=== PATIENT | male | born 2005 | race Caucasian/White ===

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

== ENCOUNTER → 2025-04-29 00:37 | Outpatient (BNV) | payer MEDICAID, SELFPAY | PROVIDERS: Emergency Provider Emergency Medicine; PCP Nurse Practitioner Primary Care; Visit Provider General Practice | DX: M25.512 Pain in left shoulder (principal) | CPT/HCPCS: 73030 ==

== ENCOUNTER 2025-04-29 01:18 | Emergency (ER) | payer MEDICAID, SELFPAY ==
--- NOTE | ~2025-04-29 | XR_ITS ---
CLINICAL HISTORY: fall pain 4 view left shoulder Comparison: None provided Findings: Bones intact. No dislocations. No significant arthritic change. No erosions. No radiopaque foreign body. IMPRESSION: 1. No acute findings This document has been electronically signed by: Kailash Escamilla MD, PHD on 04/29/2025 02:15:55
[2025-04-29 01:20] VITALS: BP 131/83; PULSE 113; RESP 18; TEMP 36.9; O2SAT 97; BMI 28.3
[2025-04-29 01:47] VITALS: BP 131/83; PULSE 113; RESP 18; TEMP 36.9; O2SAT 97
--- NOTE | 2025-04-29 03:06 | ED_ITS ---
HPI - Extremity Problem General Chief complaint: Extremity Injury, Upper Stated complaint: left shoulder pain after fall Time Seen by Provider: 04/29/25 02:54 Source: patient Mode of arrival: ambulatory Limitations: no limitations History of Present Illness ED Provider: Dr. Marisela Pepper HPI Narrative: Patient comes to the emergency room complaining of left shoulder pain. Patient states that yesterday patient was at home, patient's dog ran out, patient tried holding on to his collar. Patient got pulled to the ground and landed on his left shoulder. Patient did not hit his head and did not lose consciousness, patient not on blood thinners. Related Data Previous Rx's ?Medication ?Instructions ?Recorded amoxicillin 500 mg capsule 500 mg PO BID 10 days #20 c aps 01/17/23 ibuprofen 600 mg tablet 600 mg PO Q8H PRN pain #20 t abs 01/17/23 cyclobenzaprine 5 mg tablet 5 mg PO TID PRN muscle spa sm #10 04/29/25 tabs ibuprofen 600 mg tablet 600 mg PO Q8H PRN fever or p ain 04/29/25 #20 tabs Allergies Allergy/AdvReac Type Severity Reaction Status Date / Time No Known Allergies Allergy Verified 04/29/25 01:26 Review of Systems Review of Systems: Constitutional : No Weight loss, No Fever, No Chills, No Night Sweats, No Fatigue, No Malaise ENT/Mouth : No Hearing loss, No Ear Pain, No Nasal Congestion, No Sinus Pain, No Hoarseness, No sore throat, No Rhinorrhea, No Swallowing Difficulty Eyes: No Eye Pain, No Swelling, No Redness, No Foreign Body, No Discharge, No Vision Changes Cardiovascular : No Chest Pain, No SOB, No Dyspnea on Exertion, No Orthopnea, No Edema, No Palpitations Respiratory : No Cough, No Sputum, No Wheezing, No Smoke Exposure, No Dyspnea Gastrointestinal : No Nausea, No Vomiting, No Diarrhea, No Constipation, No abdominal Pain, No Hematochezia, No Melena Genitourinary : no irregular bleeding, No Dysuria, No Urinary Frequency, No Hematuria, No Urinary Incontinence, No Urgency, No Flank Pain, No Urinary Flow Changes, No Hesitancy Musculoskeletal : Complaining of left shoulder pain No Myalgias, No Joint Swelling Skin : No Skin Lesions, No rash Neuro : No Weakness, No Numbness, No Paresthesias, No Loss of Consciousness, No Dizziness, No Headache Psych : No Anxiety/Panic, No Depression, No SI/HI/AH/VH, No Social Issues, Heme/Lymph: No Bruising, No Bleeding,No Lymphadenopathy Endocrine : No Polyuria, No Polydipsia, No Temperature Intolerance [facility] Social History Social History Smoked in Last 30 Days: No Substance Use Type: Marijuana Advance Directives: No Advance Directives Information Provided: Yes Physical Exam Exam: Exam: Appearance: Alert. Oriented X3. No acute distress. Eyes: Pupils equal, round and reactive to light. ENT: Pharynx normal. Neck: Normal inspection. Neck supple. No lymph nodes noted. No crepitus CVS: Normal heart rate and rhythm. Pulses normal. Normal S1 and S2 Respiratory: No respiratory distress. Breath sounds normal. No Wheezing. No rales Abdomen: Soft and nontender. No rigidity. No distention. Skin: Skin warm and dry. Normal skin color. Normal skin turgor. Extremities: No lower extremity edema. No Lacerations. No Rash the palpation over the clavicle, no suprascapular pain. Patient is able to abduct his arm to 180 degrees. Neuro: Oriented X 3. No motor deficit. No sensory deficit. Moving all extremities. No slurred speech. CN 2 through 12 grossly intact Psych: calm, cooperative, normal affect Vital Signs: Vital Signs: Last Vital Signs Temp 98.4 F 04/29/25 01:47 Pulse 113 H 04/29/25 01:47 Resp 18 04/29/25 01:47 BP 131/83 04/29/25 01:47 Pulse Ox 97 04/29/25 01:47 O2 Del Method Room Air 04/29/25 01:47 BMI result Body Mass Index 28.3 Medical Decision Making Medical Decision Making MDM Narrative: I discussed the x-ray findings with the patient, no acute fracture. Patient has normal range of motion. Patient likely has a small rotator cuff tear, full rupture is not suspected. Patient may also have a contusion. Patient was given cyclobenzaprine and ibuprofen in the emergency room. Independent Interpretation I performed an independent interpretation of an: Plain X-Ray Radiology Impression Discussion of test interpretation with radiology: I have reviewed the radiologist's reading. Radiologist Impression: Bones intact. No dislocations. No significant arthritic change. No erosions. No radiopaque foreign body. IMPRESSION: 1. No acute findings Discharge Plan Discharge Clinical Impression: Contusion of left shoulder Patient Disposition: Home, Self-Care Instructions: Contusion in Adults (ED) Additional Instructions: Please follow-up with your primary care physician tomorrow. If you have any worsening or new symptoms, please return to the emergency room or call 911 Prescriptions: New cyclobenzaprine 5 mg tablet 5 mg PO TID PRN (Reason: muscle spasm) Qty: 10 0RF Rx Instructions: Do not use this medication before driving or working. ibuprofen 600 mg tablet 600 mg PO Q8H PRN (Reason: fever or pain) Qty: 20 0RF No Action amoxicillin 500 mg capsule 500 mg PO BID 10 Days Qty: 20 0RF ibuprofen 600 mg tablet 600 mg PO Q8H PRN (Reason: pain) Qty: 20 0RF Print Language: Tajik
[2025-04-29 03:32] VITALS: BP 131/83; PULSE 113; RESP 18; TEMP 36.9; O2SAT 97
== END 2025-04-29 03:39 | disposition home or self-care (01) ==
PROVIDERS: Emergency Provider Emergency Medicine; PCP Nurse Practitioner Primary Care
DX: S40.012A Contusion of left shoulder, initial encounter (principal); M25.512 Pain in left shoulder; X58.XXXA Exposure to other specified factors, initial encounter; Y93.9 Activity, unspecified; Y92.9 Unspecified place or not applicable; Y99.8 Other external cause status
CPT/HCPCS: 73030; 99283; 99284

== ENCOUNTER 2025-06-19 15:01 | Outpatient (REF) | payer MEDICAID, SELFPAY ==
--- OUTSIDE RECORDS SUMMARY | 2025-06-19 09:30 | XMS_ITS | Encounter Summary ---
Author Organization [employer] Address [address] [facility] 7t [place] [address] Care Team Providers Care Loan Originator Name Role Phone Nellie Feliz Primary Care Provider [phone] Reason for Referral * Consultation (Routine) - Authorized Specialty Diagnoses / Procedures Referred By Kay antoine Referred To Contact Behavioral Health Diagnoses Anxiety Nellie Feliz ANP [address] [place] [phone] Phone: tel: fax: Referral ID Status Reason Start Date Expiration Date Visits Requested Visits Authorized [id number] Authorized Specialty Services Required 06/19/2025 06/19/2026 1 1 Reason for Visit * Reason Comments Follow-up Encounter Details Date Type Department Care Team ([facility] st Contact Info) Description 06/19/2025 9:30 AM EDT Office Visit [facility] MEDICINE [address] [place] [address] [phone] Nellie Feliz ANP [address] [place] [phone] Routine screening for STI (sexually transmitted infection) (Primary Dx); Anxiety Social History Tobacco Use Types Packs/Day Years Used Date Smoking Tobacco: Never Smokeless Tobacco: Never Tobacco Cessation:Counseling Given: Not Answered Alcohol Answer Date Recorded How often do you have a drink containing alcohol ? 1 06/19/2025 How many drinks containing a lcohol do you have on a typical day when you are drinking? 1 06/19/2025 How often do you have six or more drinks on one occasion? 0 06/19/2025 Depression Answer Date Recorded Patient Health Questionnaire-9 Score 12 06/19/2025 Patient Health Questionnaire-9 Score 12 06/19/2025 Last PHQ-9: Questionnaire Data Not on file 0 06/19/2025 Housing Stability Answer Date Recorded What is your housing situation today? I have housing today, but I am worried about losing housing in the future 06/19/[address] you li ve. Do you have problems with any of the following? None of the above 06/19/2025 Food Insecurity Answer Date Recorded Within the past 12 months, y ou worried that your food would run out before you got money to buy more: Sometimes True 2024 Within the past 12 months,th e food you bought just didn't last and you didn't have enough money to get more: Never True 06/19/2025 Transportation Answer Date Recorded In the past 12 months, has l ack of transportation kept you from medical appts, meetings, work or from getting things needed for daily living? No 06/19/2025 Utilities Answer Date Recorded In the past 12 months, has t he electric, gas, oil or water company threatened to shut off services in your home? Yes 06/19/2025 Depression Answer Date Recorded Patient Health Questionnaire-2 Score 2 06/19/2025 Internet Access Answer Date Recorded Internet Access Q1 Yes 06/19/2025 Internet Access Q2 Not on file 06/19/2025 Sex and Gender Information Value Date Recorded Sex Assigned at Male 08/07/2022 10:19 AM EDT Legal Sex Male 10:19 AM EDT Gender Identity Male 08/07/2022 10:19 AM EDT Sexual Orientation Straight 06/18/2025 10 :40 AM EDT documented as of this encounter Last Filed Vital Signs Vital Sign Reading Time Taken Comments Blood Pressure 110/68 06/19/2025 9:55 AM EDT Pulse 68 06/19/2025 9:55 AM EDT Temperature 36.6 C (97.8 F) 06/19/2025 9:55 AM EDT Respiratory Rate 20 06/19/2025 9:55 AM EDT Oxygen Saturation - - Inhaled Oxygen Concentration - - Weight 90.4 kg (199 lb 4 oz) 06/19/2025 9:55 AM EDT Height 177.8 cm (5' 10 ) 06/19/2025 9:55 AM EDT Body Mass Index 28.59 06/19/2025 9:55 AM EDT documented in this encounter Functional Status * Over the past 2 weeks, how often have you been bothered by any of the following problems? Question Answer Date of Assessment Author Patient Health Questionnaire -2 Score 2 06/19/2025 9:57 AM EDT Nguyen Hernandez MA * Little interest or pleasure in doing things Answer Date of Assessment Author Several days 06/19/2025 9:57 AM EDT Renetta Hernandez MA * Feeling down, depressed, or hopeless Answer Date of Assessment Author Several days 06/19/2025 9:57 AM EDT Renetta Hernandez MA * Trouble falling or staying asleep, or sleeping too much Answer Date of Assessment Author More than half the days 06/19/2025 9:57 AM EDT Nguyen Riggs MA * Feeling tired or having little energy Answer Date of Assessment Author More than half the days 06/19/2025 9:57 AM EDT Nguyen Riggs MA * Poor appetite or overeating Answer Date of Assessment Author More than half the days 06/19/2025 9:57 AM POLOT Nguyen Riggs MA * Feeling bad about yourself - or that you are a failure or have let yourself or your family down Answer Date of Assessment Author Several days 06/19/2025 9:57 AM EDT Renetta Hernandez MA * Trouble concentrating on things, such as reading the newspaper or watching television Answer Date of Assessment Author Several days 06/19/2025 9:57 AM EDT Renetta eHrnandez MA * Moving or speaking so slowly that other people could have noticed? Or the opposite - being so fidgety or restless that you have been moving around a lot more than usual. Answer Date of Assessment Author More than half the days 06/19/2025 9:57 AM EDT Nguyen Riggs MA * Thoughts that you would be better off or hurting yourself in some way Answer Date of Assessment Author Not at all 06/19/2025 9:57 AM Renetta Roca MA * Patient Health Questionnaire-9 Score Answer Date of Assessment Author 12 06/19/2025 9:57 AM Renetta Roca MA * How difficult have these problems made it for you to do your work, take care of things at home, or get along with other people? Answer Date of Assessment Author Very difficult 06/19/2025 9:57 AM Renetta Roca MA * Over the last 2 weeks, how often have you been bothered by any of the following problems? Question Answer Date of Assessment Author Feeling nervous, anxious, or on edge 2 06/19/2025 10:37 AM Nguyen Roca MA Not being able to stop or co ntrol worrying 2 06/19/2025 10:37 AM Nguyen Roca MA Worrying too much about diff erent things 2 06/19/2025 10:37 AM Nguyen Roca MA Trouble relaxing 2 06/19/2025 10:37 AM Nguyen Roca MA Being so restless that it is hard to sit still 3 06/19/2025 10:37 AM Nguyen Roca MA Becoming easily annoyed or irritable 2 06/19/2025 10:37 AM Nguyen Roca MA Feeling afraid as if somethi ng awful might happen 2 06/19/2025 10:37 AM Nguyen Roca MA AJIT-7 Total Score 15 06/19/2025 10:37 AM Nguyen Roca MA documented as of this encounter Progress Notes * SIMON Cade - 06/19/2025 9:30 AM EDT Subjective Patient ID: Ridge Shelby is a 20 y.o. male who presents for Follow-up. HPI Depression has been better since taking sertraline consistently, anxiety has not really improved though. Is walking more. He has been having difficulty getting out to work and class d/t anxiety. Is thinking abt applying to disability. Was in therapy but stopped b/c he was actually feeling so down it was hard to even participate. 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 HENT: Negative for sore throat. Respiratory: Negative for cough. Endocrine: Negative for polydipsia, polyphagia and polyuria. Psychiatric/Behavioral: Positive for dysphoric mood. Negative for agitation and confusion. The patient is nervous/anxious. Objective BP 110/68 (BP Location: Left arm, Patient Position: Sitting, BP Cuff Size: Adult) Pulse68 Temp 97.8 ??F (36.6 ??C) (Oral) Resp 20 Ht 5' 10 (1.778 m) Wt 199 lb 4 oz (90.4 kg) BMI 28.59 kg/m?? Physical Exam Vitals reviewed. Constitutional: General: He is not in acute distress. Appearance: Normal appearance. He is not ill-appearing. HENT: Head: Normocephalic and atraumatic. Eyes: General: No scleral icterus. Extraocular Movements: Extraocular movements intact. Pupils: Pupils are equal, round, and reactive to light. Cardiovascular: Rate and Rhythm: Normal rate and regular rhythm. Pulmonary: Effort: Pulmonary effort is normal. No accessory muscle usage or respiratory distress. Neurological: Mental Status: He is alert and oriented to person, place, and time. Psychiatric: Mood and Affect: Mood normal. Behavior: Behavior normal. Assessment/Plan Diagnoses and all orders for this visit: Routine screening for STI (sexually transmitted infection) - Chlamydia/N. Gonorrhoeae, PCR, Urine - Hepatitis C Antibody with Reflex to HCV, RNA, Quantitative, Real-Time PCR; Future - HIV-1/2 Antigen and Antibodies, Fourth Generation, with Reflexes; Future - Syphilis Screen; Future Anxiety Comments: will increase sertraline to 100mg daily, call for follow-up short term Accepts referral to Orders: - Referral to Behavioral Health; Future - sertraline (Zoloft) 100 MG tablet; Take 1 tablet (100 mg) by mouth Once per day. Take 1 tab (50mg) once daily documented in this encounter Plan of Treatment Upcoming Encounters Date Type Department Care Team ([facility] st Contact Info) Description 07/28/2025 11:00 AM EDT Telemedicine [facility] MEDICINE [address] [place] [address] Nellie Feliz ANP [address] [place], [place] [phone] Scheduled Orders Name Type Priority Associated Diagnoses Orde r Schedule Hepatitis C Antibody with Reflex to HCV, RNA, Quantitative, Real-Time PCR Lab Routine Routine screening for STI (sexually transmitted infection) Expected: 06/19/2025 (Approximate), Expires: 06/19/2026 HIV-1/2 Antigen and Antibodies, Fourth Generation, with Reflexes Lab Routine Routine screening for STI (sexually transmitted infection) Expected: 06/19/2025 (Approximate), Expires: 06/19/2026 Syphilis Screen Lab Routine Routine screening for STI (sexually transmitted infection) Expected: 06/19/2025 (Approximate), Expires: 06/19/2026 Scheduled Referrals Name Type Priority Associated Diagnoses Order Schedule Referral to Behavioral Health Outpatient Referral Routine Anxiety Expected: 06/19/2025 (Approximate), Expires: 12/17/2026 documented as of this encounter Procedures Procedure Name Priority Date/Time Associated Diagnosis Comments CHLAMYDIA/TRICHOMON /NEISSERIA GONORRHOEAE, PCR, URINE Routine 06/19/2025 10:35 AM EDT Routine screening for STI (sexually transmitted infection) documented in this encounter Results * Chlamydia/N. Gonorrhoeae, PCR, Urine (06/19/2025 10:35 AM EDT) [facility] CT PCR, Urine NOT DETECTED Not Detect. [facility] Comment:A not detected test result does not exclude the possibilityof infection because test results can be affected byimproper specimen collection, concurrent antibiotic therapy,or the number of organisms in the specimen which may bebelow the sensitivity of the test. As with many diagnostictests, results from the Xpert CT/NG assay should beinterpreted in conjunction with other laboratory andclinical data available to the clinician.The Xpert CT/NG assay should not be used for the evaluationof suspected sexual abuse or for other medico-legalindications. Additional testing is recommended in anycircumstance when false positive or false negative resultscould lead to adverse medical, social or psychologicalconsequences. NG PCR, Urine NOT DETECTED Not Detect. [facility] Comment:A not detected test result does not exclude the possibilityof infection because test results can be affected byimproper specimen collection, concurrent antibiotic therapy,or the number of organisms in the specimen which may bebelow the sensitivity of the test. As with many diagnostictests, results from the Xpert CT/NG assay should beinterpreted in conjunction with other laboratory andclinical data available to the clinician.The Xpert CT/NG assay should not be used for the evaluationof suspected sexual abuse or for other medico-legalindications. Additional testing is recommended in anycircumstance when false positive or false negative resultscould lead to adverse medical, social or psychologicalconsequences. Urine (Urine, Random) 06/19/2025 10:35 AM EDT 06/19/2025 3:02 PM EDT us Nellie MONTES LAB URINE ORDERABLES Final Resul t Performing Organization Address City/State/[facility] Co de Phone Number [facility] [address] [place] [phone] documented in this encounter Visit Diagnoses Diagnosis Routine screening for STI (sexually transmitted infection)- Primary Screening examination for venereal disease Anxiety Anxiety state, unspecified documented in this encounter Additional Health Concerns Assessment Noted Time PHQ-9 Depression Total Score: 12 025 9:57 AM EDT documented as of this encounter Care Teams Loan Originator Relationship Specialty Start Date End Date Nellie Feliz ANP [address] [place] [phone] PCP - General Family Medicine 11/14/23 documented as of this encounter
[2025-06-19 16:35] LABS: CT PCR Urine NOT DETECTED (Not Detect.); NG PCR Urine NOT DETECTED (Not Detect.)
--- OUTSIDE RECORDS SUMMARY | 2025-06-19 17:34 | XMS_ITS | Encounter Summary ---
Author Organization [employer] Address [address] [facility] [address] [place] [address] Care Team Providers Care Merry Go Round Attendant Name Role Phone Nellie Feliz Primary Care Provider [phone] Reason for Visit * Reason Comments Med Refill Encounter Details Date Type Department Care Team ([facility] st Contact Info) Description 06/19/2025 Refill [facility] MEDICINE [address] [place] [address] Nellie Feliz ANP [address] [place] [address] Anxiety Social History Tobacco Use Types Packs/Day Years Used Date Smoking Tobacco: Never Smokeless Tobacco: Never Alcohol Answer Date Recorded How often do [...] AM EDT documented as of this encounter Functional Status * Over the [...] Assessment Author Several days 06/19/2025 9:57 AM POLOT Renetta Hernandez MA * Trouble concentrating on things, such as reading the newspaper or watching television Answer Date of Assessment Author Several days 06/19/2025 9:57 AM POLOT Renetta Hernandez MA * Moving or speaking so slowly [...] Author Not at all 06/19/2025 9:57 AM POLOT Renetta Hernandez MA * Patient Health Questionnaire-9 Score Answer Date of Assessment Author 06/19/2025 9:57 AM EDT Renetta Hernandez MA * How difficult have these problems made it for you to do your work, take care of things at home, or get along with other people? Answer Date of Assessment Author Very difficult 06/19/2025 9:57 AM POLOT Renetta Hernandez MA documented as of this encounter Plan of Treatment Upcoming Encounters Date Type Department Care Team (Late st Contact Info) Description 07/28/2025 11:00 AM EDT Telemedicine [facility] MEDICINE [address] [place] [address] Nellie Feliz ANP [address] [place] [address] documented as of this encounter Visit Diagnoses Diagnosis Anxiety Anxiety state, unspecified documented in this encounter Additional Health Concerns Assessment Noted Time PHQ-9 Depression Total Score: 025 9:57 AM EDT documented as of this encounter Care Teams Merry Go Round Attendant Relationship Specialty Start Date End Date Nellie Feliz ANP [address] [place] [phone] PCP - General Family Medicine 11/14/23 documented as of this encounter
--- OUTSIDE RECORDS SUMMARY | 2025-06-19 17:34 | XMS_ITS | Encounter Summary ---
Author Organization [employer] Address [address] [facility] [address] [place] [address] Care Team Providers Care Primary Care Nurse Name Role Phone Tray Nellie MONTES Primary Care Provider [phone] Encounter Details Date Type Department Care Team (Latest Contact Info) Description 06/19/2025 Travel Social History Tobacco Use Types Packs/Day Years [...] Assessment Author Several days 06/19/2025 9:57 AM Renetta Roca MA * Moving or speaking so slowly that other people could have noticed? Or the opposite - being so fidgety or restless that you have been moving around a lot more than usual. Answer Date of Assessment Author More than half the days 06/19/2025 9:57 AM Nguyen Robledo MA * Thoughts that you would be [...] Roca MA documented as of this encounter Plan of Treatment Upcoming Encounters Date Type Department Care Team (Late st Contact Info) Description 07/28/2025 11:00 AM EDT Telemedicine [facility] MEDICINE [address] [place] [address] Nellie Feliz ANP [address] [place] [address] documented as of this encounter Visit Diagnoses Not on filedocumented in this encounter Additional Health Concerns Assessment Noted Time PHQ-9 Depression Total Score: 12 025 9:57 AM EDT documented as of this encounter Care Teams Primary Care Nurse Relationship Specialty Start Date End Date Nellie Feliz ANP [address] [place] [phone] PCP - General Family Medicine 11/14/23 documented as of this encounter
--- OUTSIDE RECORDS SUMMARY | 2025-06-19 17:34 | XMS_ITS | Encounter Summary ---
Author Organization [employer] Address [address] [facility] [place] [address] Care Team Providers Care Club Concierge Name Role Phone Nellie Feliz Primary Care Provider [phone] Reason for Visit * Reason Onset Date Comments chart prep 06/18/2025 Encounter Details Date Type Department Care Team ([facility] st Contact Info) Description 06/18/2025 Telephone [facility] MEDICINE [address] [place] [address] Nellie Feliz ANP [address] [place] [address] chart prep Social History Tobacco Use Types Packs/Day Years [...] the past 12 months, has t he [employer], gas, oil or water company threatened to [...] AM EDT documented as of this encounter Miscellaneous Notes * Telephone Encounter - Nguyen Hernandez MA - 06/18/2025 8:32 AM EDT Chart Prep Labs: not applicable Images: not applicable Referrals: not applicable Vaccines due: Covid, Flu, and MCV4 Screenings: STI screening Overdue care gaps: SBIRT, SDOH, PHQ-9, AJIT-7, Oral health screening, and Disability screen documented in this encounter Plan of Treatment Upcoming Encounters Date Type Department Care Team (Late st Contact Info) Description 07/28/2025 11:00 AM EDT Telemedicine [facility] MEDICINE [address] [place], [place] [phone] Nellie Feliz ANP [address] [place] [address] documented as of this encounter Visit Diagnoses Not on filedocumented in this encounter Additional Health Concerns Assessment Noted Time PHQ-9 Depression Total Score: 9 05/14/20 24 11:49 AM EDT documented as of this encounter Care Teams Club Concierge Relationship Specialty Start Date End Date Nellie Feliz ANP [address] [place] [address] PCP - General Family Medicine 11/14/23 documented as of this encounter
--- OUTSIDE RECORDS SUMMARY | 2025-06-19 17:34 | XMS_ITS | Encounter Summary ---
Author Organization [employer] Address [address] [facility] [address] [place] [address] Care Team Providers Care Ball Ender Name Role Phone Tray Nellie MONTES Primary Care Provider [phone] Encounter Details Date Type Department Care Team (Latest Contact Info) Description 06/18/2025 Travel Social History Tobacco Use Types Packs/Day [...] AM EDT documented as of this encounter Plan of Treatment Upcoming Encounters Date Type Department Care Team (Late st Contact Info) Description 07/28/2025 11:00 AM EDT Telemedicine [facility] MEDICINE [address] [place] [phone] Nellie Feliz ANP [address] [place] [address] documented as of this encounter Visit Diagnoses Not on filedocumented in this encounter Additional Health Concerns Assessment Noted Time PHQ-9 Depression Total Score: 9 02/19/20 24 11:49 AM EDT documented as of this encounter Care Teams Ball Ender Relationship Specialty Start Date End Date Nellie Feliz ANP [address] [place] [phone] PCP - General Family Medicine 11/14/23 documented as of this encounter
--- OUTSIDE RECORDS SUMMARY | 2025-06-19 17:34 | XMS_ITS | Clinical Summary ---
Author Organization [employer] Address [address] [facility] [address] [place] [address] Care Team Providers Care Paediatric Surgeon Name Role Phone Tray Nellie MONTES Primary Care Provider [phone] Allergies No known active allergies Medications * This document contains information received from the source organization and may not represent a complete record from that organization. fluticasone (Flonase) 50 MCG/ACT nasal spray INSTILL 1 SPRAY INTO EACH NOSTRIL ONCE PER DAY. 48 mL 05/13/20 24 Active loratadine (Claritin) 10 MG tabletIndicati ons:Anxiety,Se asonal allergic rhinitis due to other allergic trigger Take 1 tab once daily as needed for allergies 90 tablet 1 08/28/20 24 Active omeprazole (PriLOSEC) [address] capsule Take 1 capsule (20 mg) by mouth before breakfast. Do not crush or chew.TAKE 1 CAPSULE BY MOUTH EVERY DAY IN THE MORNING 90 capsule 11/28/19 25 Active sertraline (Zoloft) 100 MG tabletIndicati ons:Anxiety Take 1 tablet (100 mg) by mouth Once per day. Take 1 tab (50mg) once daily 90 tablet 1 06/19/20 25 Active sertraline (Zoloft) 50 MG tabletIndicati ons:Anxiety Take 1 tab (50mg) once daily 90 tablet 1 08/28/20 24 025 Discontinued(Re order (will not trigger notification to Pharmacy)) sertraline (Zoloft) 50 MG tabletIndicati ons:Anxiety Take 1.5 tablets (75 mg) by mouth Once per day. Take 1 tab (50mg) once daily 135 tablet 1 06/19/20 25 025 Discontinued Active Problems Problem Noted Date Diagnosed Date Non-seasonal allergic rhinitis 12/18/2024 Encounters Date Type Department Care Team Description 06/19/2025 9:30 AM EDT Office Visit [facility] [address] [place] [phone] Nellie Feliz ANP Routine screening for STI (sexually transmitted infection) (Primary Dx); Anxiety 06/19/2025 Travel 06/19/2025 Refill [facility] [address] [place] [phone] Nellie Feliz ANP Anxiety 06/18/2025 Travel 06/18/[address] [phone] Nellie Feliz ANP chart prep from Last 3 Months Immunizations Immunization Administration Dates Next Due DTaP, 5 pertussis antigens 08/07/2006,,2005,05/06 HPV 9-Valent 06/18/2017,08/29/2016 Hep A, ped/adol, 2 dose 09/17/2006,03/15/2006 Hep B, Adolescent or Pediatric 2005,2004,2005 Hib (HbOC) 09/17/2006,2005,2005 IPV 10/23/2013, 6,2005,05/06 Influenza Injectable Quadriv alant Preservative Free IIV4 MDCK 02/11/2019 Influenza injectable quadriv alent preservative free 08/24/2021,09/08/2020,06/18/2017,08/29 Influenza, IIV3, injectable 09/17/2006, 6 MMR 03/15/2006 MMRV 10/23/2013 Meningococcal MCV4P ACYW-135 08/24/2021,08/29/20 16 Pneumococcal Conjugate PCV 7 2005,08/17/20 05,2005 Tdap 02/11/2019,10/23/2013 Varicella 03/15/2006 Social History Tobacco Use Types Packs/Day Years [...] Orientation Straight 06/18/2025 10 :40 AM EDT Last Filed Vital Signs Vital Sign Reading Time Taken Comments Blood Pressure 110/68 06/19/2025 9:55 AM EDT Pulse 68 06/19/2025 9:55 AM EDT Temperature 36.6 C (97.8 F) 06/19/2025 9:55 AM EDT Respiratory Rate 20 06/19/2025 9:55 AM EDT Oxygen Saturation 98% 02/19/2024 11:48 AM EDT Inhaled Oxygen Concentration - - Weight 90.4 kg (199 lb 4 oz) 06/19/2025 9:55 AM EDT Height 177.8 cm (5' 10 ) 06/19/2025 9:55 AM EDT Body Mass Index 28.59 06/19/2025 9:55 AM EDT Plan of Treatment Upcoming Encounters Date Type Department Care Team (Late st Contact Info) Description 07/28/2025 11:00 AM EDT Telemedicine [facility] [address] [place] [address] Nellie Feliz ANP [address], [place] [phone] Health Maintenance Due Date Last Done Comments Family Planning (PISQ) 02/25/2020 Meningococcal B Vaccine (1 of 2 - Standard) 2021 Chlamydia and Gonorrhea Screening 12/19/2024 12/20/2023 COVID-19 Vaccine ( season) 2025 10/10/2021, 08/24/2021 Influenza Vaccine (#1) 2025 , 09/08/2020, 02/11/2019, Additional history exists Depression Monitoring 12/17/2025 06/19/2025, 025 Alcohol/Substance Use Screening 06/19/2026 06/19/2025 Disability Screening 06/19/2026 06/19/2025 SDOH Screening 06/19/2026 06/19/2025 Tobacco Screening 06/19/2026 06/19/2025 DTaP/Tdap/Td Vaccines (7 - Td or Tdap) 02/11/2029 02/11/2019, 10/23/2013, 08/07/2006, Additional history exists Zoster Vaccines (1 of 2) 2055 RSV Patients and Patients Aged 60 years or older (1 - 1-dose 75+ series) 02/25/2080 Hepatitis B Vaccines Completed 2005, 2005, 2005 Pneumococcal Vaccine: Pediatrics (0 to 5 Years) and At-Risk Patients (6 to 49) Years Aged Out 2005, 2005, 2005 No longer eligible based on patient's age to complete this topic HIB Vaccines Completed 09/17/2006, 08/08, 2005 Hepatitis A Vaccines Completed 09/17/2006, 03/15/20 06 IPV Vaccines Completed 10/23/2013, 10/10, 2005, Additional history exists HPV Vaccines Completed 06/18/2017, 08/29/2016 HIV Screening Completed 09/08/2020 Hepatitis C Screening Completed 09/08/2020 Meningococcal Vaccine Completed 08/24/2021, 016 RSV under 20 months Aged Out No longe r eligible based on patient's age to complete this topic Rotavirus Vaccines Aged Out No longer eligible based on patient's age to complete this topic Procedures Procedure Name Priority Date/Time Associated Diagnosis Comments CHLAMYDIA/TRICHOMONA S/NEISSERIA GONORRHOEAE, PCR, URINE Routine 06/19/2025 10:35 AM EDT Routine screening for STI (sexually transmitted infection) CHLAMYDIA/N. GONORRHOEAE RNA, TMA, UROGENITAL Routine 12/20/2023 2:51 PM EDT Routine screening for STI (sexually transmitted infection) ZZZ HISTORICAL HEPATITIS C AB W/REFL TO HCV RNA, QN, PCR Routine 09/08/2020 11:06 AM EST HIV 1/2 ANTIGEN/ANTIBODY, FOURTH GENERATION W/RFL Routine 09/08/2020 11:06 AM EST from Last 3 Months or Most Recently Relevant to Health Maintenance Results * Chlamydia/N. Gonorrhoeae, PCR, Urine (06/19/2025 10:35 AM EDT) CT PCR, Urine NOT DETECTED Not Detect. [facility] Comment:A not detected test result [...] NG PCR, Urine NOT DETECTED Not Detect. [facility] Comment:A not detected test result [...] 10:35 AM EDT 06/19/2025 3:02 PM EDT [facility] URINE ORDERABLES Final Resul t [facility] [address] [place] [phone] * Chlamydia/N. Gonorrhoeae RNA, TMA, Urogenitial (12/20/2023 2:51 PM EDT) CT PCR NOT DETECTED Not Detect. [facility] Comment:A not detected test result does not exclude the possibilityof infection because test results can be affected byimproper specimen collection, concurrent antibiotic therapy,or the number of organisms in the specimen which may bebelow the sensitivity of the test. As with many diagnostictests, results from the Xpert CT/NG assay should beinterpreted in conjunction with other laboratory andclinical data available to the clinician.Xpert CT/NG performance has not been evaluated in patientsless than 14 years of age. The assay should not be used forthe evaluationof suspected sexual abuse or for other medico-legalindications. Additional testing is recommended in anycircumstance when false positive or false negative resultscould lead to adverse medical, social or psychologicalconsequences. NG PCR NOT DETECTED Not Detect. [facility] Comment:A not detected test result does not exclude the possibilityof infection because test results can be affected byimproper specimen collection, concurrent antibiotic therapy,or the number of organisms in the specimen which may bebelow the sensitivity of the test. As with many diagnostictests, results from the Xpert CT/NG assay should beinterpreted in conjunction with other laboratory andclinical data available to the clinician.Xpert CT/NG performance has not been evaluated in patientsless than 14 years of age. The assay should not be used forthe evaluationof suspected sexual abuse or for other medico-legalindications. Additional testing is recommended in anycircumstance when false positive or false negative resultscould lead to adverse medical, social or psychologicalconsequences. Urine (Urine, Random) 12/20/2023 2:51 PM EDT 12/20/2023 4:11 PM EDT Narrative [facility] - 12/21/2023 12:09 PM EDT Urine [facility] MICROBIOLOGY - GENERAL ORDER CALEB Final Result [facility] [address] [place] [phone] * HEPATITIS C AB W/REFL TO HCV RNA, QN, PCR (09/08/2020 11:06 AM EST) HEPATITIS C ANTIBODY NON-REACT KAILA NON-REACT KAILA [facility] INDEX 0.02 <1.00 [facility] Comment: HCV antibody was non-reactive. There is no laboratory evidence of HCV infection. In most cases, no further action is required. However, if recent HCV exposure is suspected, a test for HCV RNA (test code 64936) is suggested. For additional information please refer to http://education.link bird/faq/HQJ98z2 (This link is being provided for informational/ educational purposes only.) HEPATITIS C ANTIBODY NON-REACT KAILA NON-REACT KAILA [facility] INDEX 0.02 <1.00 [facility] Comment: HCV antibody was non-reactive. There is no laboratory evidence of HCV infection. In most cases, no further action is required. However, if recent HCV exposure is suspected, a test for HCV RNA (test code 89263) is suggested. For additional information please refer to http://Autopilot ([employer] Bisl[employer]).link bird/faq/SVJ07o5 (This link is being provided for informational/ educational purposes only.) 09/08/2020 11:0 6 AM EST Justin Balbuena MD HISTORICAL/NON ORDERABLE LABS F inal Result [facility] [address] * HIV 1/2 ANTIGEN/ANTIBODY,FOURTH GENERATION W/RFL (09/08/2020 11:06 AM EST) HIV-1/2 ANTIGEN AND ANTIBODIES, 4TH GENERATION W/ REFLEX NON-REACT KAILA NON-REACT KAILA [facility] Comment: HIV-1 antigen and HIV-1/HIV-2 antibodies were not detected. There is no laboratory evidence of HIV infection. PLEASE NOTE: This information has been disclosed to you from records whose confidentiality may be protected by state law. If your state requires such protection, then the state law prohibits you from making any further disclosure of the information without the specific written consent of the person to whom it pertains, or as otherwise permitted by law. A general authorization for the release of medical or other information is NOT sufficient for this purpose. For additional information please refer to http://Autopilot (formerly Bislr).link bird/faq/JSM368 (This link is being provided for informational/ educational purposes only.) The performance of this assay has not been clinically validated in patients less than 2 years old. HIV-1/2 ANTIGEN AND ANTIBODIES, 4TH GENERATION W/ REFLEX NON-REACT KAILA NON-REACT KAILA [facility] Comment: HIV-1 antigen and HIV-1/HIV-2 antibodies were not detected. There is no laboratory evidence of HIV infection. PLEASE NOTE: This information has been disclosed to you from records whose confidentiality may be protected by state law. If your state requires such protection, then the state law prohibits you from making any further disclosure of the information without the specific written consent of the person to whom it pertains, or as otherwise permitted by law. A general authorization for the release of medical or other information is NOT sufficient for this purpose. For additional information please refer to http://education.link bird/faq/YBV831 (This link is being provided for informational/ educational purposes only.) The performance of this assay has not been clinically validated in patients less than 2 years old. 09/08/2020 11:0 6 AM EST us Justin Balbuena MD LAB BLOOD ORDERABLES Final Resu lt [facility] [address] from Last 3 Months or Most Recently Relevant to Health Maintenance Insurance [facility] C3 Care Teams Paediatric Surgeon Relationship Specialty Start Date End Date Nellie Feliz ANP [address] [place] [phone] PCP - General Family Medicine 11/14/23
== END 2025-06-19 15:02 | disposition home or self-care (01) ==
LOC: HO.LNP 15:01
PROVIDERS: Visit Provider Nurse Practitioner Primary Care
DX: Z11.3 Encounter for screening for infections with a predominantly sexual mode of transmission (principal); Z11.8 Encounter for screening for other infectious and parasitic diseases
CPT/HCPCS: 87491; 87591

== ENCOUNTER 2025-09-21 11:48 | Outpatient (REF) | payer MEDICAID, SELFPAY ==
[2025-09-22 04:26] LABS: Syphilis Screen Nonreactive (Nonreactive)
[2025-09-22 05:06] LABS: HIV Num 1 0.06 S/CO (0.00-0.99); ~HepC Num1 0.28 S/CO (0.00-0.79); ~Hepatitis C Antibody Nonreactive (Nonreactive)
== END 2025-09-21 11:49 | disposition home or self-care (01) ==
LOC: HO.HHCL 11:48
PROVIDERS: PCP Nurse Practitioner Primary Care; Referring Provider Emergency Medicine; Visit Provider Nurse Practitioner Primary Care
DX: Z11.3 Encounter for screening for infections with a predominantly sexual mode of transmission (principal); Z11.59 Encounter for screening for other viral diseases; Z11.4 Encounter for screening for human immunodeficiency virus [HIV]
CPT/HCPCS: 36415; 86780; 86803; 87389

== ENCOUNTER 2025-10-04 00:37 | Emergency (ER) | payer MEDICAID, SELFPAY ==
--- NOTE | 2025-10-04 | ECG_ITS ---
Test Reason : chest tightness Blood Pressure : */* mmHG Vent. Rate : 81 BPM Atrial Rate : 81 BPM P-R Int : 138 ms QRS Dur : 76 ms QT Int : 372 ms P-R-T Axes : 67 63 45 degrees QTcB Int : 432 ms Normal sinus rhythm Normal ECG When compared with ECG of 22-Nov-2021 13:27, Premature atrial complexes are no longer Present Referred By: Generic ED Physician Electronically Signed By: ARIK BRINK MD
--- NOTE | ~2025-10-04 | XR_ITS ---
CLINICAL HISTORY: cough wheezing chest tightness CHEST X-RAY FRONTAL AND LATERAL VIEWS COMPARISON: None provided. FINDINGS: Frontal and lateral views of the chest were performed. The cardiac size and mediastinal silhouette are within normal limits. The lungs are clear. There are no acute infiltrates or pleural effusions. There is no pneumothorax. IMPRESSION: 1. No acute disease. This document has been electronically signed by: Martínez Macario M.D. on 10/04/2025 03:09:29
[2025-10-04 00:53] VITALS: BP 129/75; PULSE 80; RESP 18; TEMP 36.7; O2SAT 94; BMI 28.9
[2025-10-04 02:34] LABS: Resp Syncy Virus RNA Qual PCR NEGATIVE (Negative); SARS COV2 PCR INHOUSE NEGATIVE (Negative)
[2025-10-04 03:03] VITALS: BP 122/74; PULSE 68; RESP 16; TEMP 37; O2SAT 97
--- OUTSIDE RECORDS SUMMARY | 2025-10-04 03:24 | XMS_ITS | Clinical Summary ---
Author Organization [employer] Address [address] [place] [address] Care Team Providers Care Cargo And Container Inspector Name Role Phone Tray Nellie MONTES Primary Care Provider [phone] Allergies No known active allergies Medications * This document contains information received from the source organization and may not represent a complete record from that organization. fluticasone (Flonase) 50 MCG/ACT nasal spray INSTILL 1 SPRAY INTO EACH NOSTRIL ONCE PER DAY. 48 mL 05/13/20 24 Active omeprazole (PriLOSEC) [address] [...] daily 90 tablet 1 06/19/20 25 Active loratadine (Claritin) 10 MG tabletIndicati ons:Anxiety,Se asonal allergic rhinitis due to other allergic trigger TAKE 1 TABLET BY MOUTH EVERY DAY NEEDED FOR ALLERGIES 90 tablet 1 09/17/20 25 Active loratadine (Claritin) 10 MG tabletIndicati ons:Anxiety,Se asonal allergic rhinitis due to other allergic trigger Take 1 tab once daily as needed for allergies 90 tablet 1 08/28/20 24 025 Discontinued Active Problems Problem Noted Date Diagnosed Date Moderate recurrent major depression (CMS/HCC) Anxiety 07/07/2025 Non-seasonal allergic rhinitis 12/18/2024 Encounters * This document contains information received from the source organization and may not represent a complete record from that organization. Date Type Department Care Team Description 09/21/2025 10:40 AM EST Office Visit [facility] [address] [place] [phone] Ubaldo Murray MD Influenza-like symptoms (Primary Dx); Heartburn; Cough in adult patient 09/21/2025 Travel 09/17/2025 Refill [facility] [address] [place] [phone] Nellie Feliz ANP Anxiety; Seasonal allergic rhinitis due to other allergic trigger 08/31/2025 Telephone [facility] [address] [place] [phone] Nellie Feliz ANP Letter for School/Work 07/28/[address] [phone] Nellie Feliz ANP 07/27/[address] [phone] Nellie Feliz ANP chart prep from Last [...] Answer Date Recorded Patient Health Questionnaire-2 Score 4 07/07/2025 Internet Access Answer Date Recorded Internet Access [...] Sign Reading Time Taken Comments Blood Pressure 119/89 09/21/2025 11:08 AM EST Pulse 79 09/21/2025 11:08 AM EST Temperature 36.6 C (97.9 F) 09/21/2025 11:08 AM EST Respiratory Rate 18 09/21/2025 11:08 AM EST Oxygen Saturation 99% 09/21/2025 11:08 AM EST Inhaled Oxygen Concentration - - Weight 90.3 kg (199 lb) 09/21/2025 11:08 AM EST Height 177.8 cm (5' 10 ) 06/19/2025 9:55 AM EDT Body Mass Index 28.55 06/19/2025 9:55 AM EDT Plan of Treatment Health Maintenance Due Date Last Done Comments Family Planning (PISQ) 02/25/2020 Meningococcal B Vaccine (1 of 2 - Standard) 2021 COVID-19 Vaccine ( season) 2025 10/10/2021, 08/24/2021 Influenza Vaccine (#1) 2025 , 09/08/2020, 02/11/2019, Additional history exists Depression Monitoring 01/04/2026 07/07/2025, 025 Alcohol/Substance Use Screening 06/19/2026 06/19/2025 Chlamydia and Gonorrhea Screening 06/19/2026 06/19/2025, 12/20/2023 Disability Screening 06/19/2026 06/19/2025 SDOH Screening 06/19/2026 06/19/2025 Tobacco Screening 09/21/2026 09/21/2025 DTaP/Tdap/Td Vaccines (7 - Td or Tdap) [...] history exists HPV Vaccines Completed 06/18/2017, 08/29/2016 Meningococcal Vaccine Completed 08/24/2021, 016 HIV Screening Completed 09/21/2025, 09/08/2020 Hepatitis C Screening Completed 09/21/2025, 020 RSV under 20 months Aged Out No longe r eligible based on patient's age to complete this topic Rotavirus Vaccines Aged Out No longer eligible based on patient's age to complete this topic Procedures Procedure Name Priority Date/Time Associated Diagnosis Comments SYPHILIS SCREEN Routine 09/21/2025 11:52 AM EST Routine screening for STI (sexually transmitted infection) HIV 1/2 ANTIGEN/ANTIBODY, FOURTH GENERATION W/RFL Routine 09/21/2025 11:52 AM EST Routine screening for STI (sexually transmitted infection) HEPATITIS C AB W/REFL TO HCV RNA, QN, PCR Routine 09/21/2025 11:52 AM EST Routine screening for STI (sexually transmitted infection) POCT RAPID COVID ANTIGEN Routine 09/21/2025 11:39 AM EST Cough in adult patient POCT INFLUENZA B (ID NOW RAPID MOLECULAR) Routine 09/21/2025 11:39 AM EST Cough in adult patient POCT INFLUENZA A (ID NOW RAPID MOLECULAR) Routine 09/21/2025 11:38 AM EST Cough in adult patient CHLAMYDIA/TRICHOMON /NEISSERIA GONORRHOEAE, PCR, URINE Routine 06/19/2025 10:35 AM EDT Routine screening for STI (sexually transmitted infection) from Last 3 Months or Most Recently Relevant to Health Maintenance Results * Syphilis Screen (09/21/2025 11:52 AM EST) [facility] Syphilis Screen Nonreactive Nonreactive [facility] Blood Venous blood specimen / Unknown 09/21/2025 11:52 AM EST 09/21/2025 1:37 PM EST Nellie Feliz [facility] BLOOD ORDERABLES Final Resul t Performing Organization Address [facility] Co de Phone Number [facility] [address] [place] [phone] * Hepatitis C Antibody with Reflex to HCV, RNA, Quantitative, Real-Time PCR (09/21/2025 11:52 AM EST) [facility] Hepatitis C Antibody Nonreactive Nonreactive [facility] Comment:Antibodies to HCV no t detected; does not exclude early acuteHCV infection. Blood Venous blood specimen / Unknown 09/21/2025 11:52 AM EST 09/21/2025 1:37 PM EST Nellie Feliz [facility] BLOOD ORDERABLES Final Resul t Performing Organization Address [facility] de Phone Number [facility] [address] [place] [phone] * HIV-1/2 Antigen and Antibodies, Fourth Generation, with Reflexes (09/21/2025 11:52 AM EST) [facility] HIV AB/AG Nonreactive Nonreactive [facility] Comment:HIV-1 p24 Ag and/or HIV-1/HIV-2 Ab not detected.A test result that is nonreactive does not exclude thepossibility of exposure to or infection with HIV-1 and/orHIV-2. Nonreactive results in this assay for individualswith prior exposure to HIV-1 and/or HIV-2 may be due toantigen and antibody levels that are below the limit ofdetection of this assay.The [employer]Poll HIV Ag/Ab Combo assay result andsupplemental assay results should be interpreted inconjunction with the patient's clinical presentation,history and other laboratory results. If the results areinconsistent with clinical evidence, additional testing issuggested to confirm the result. Blood Venous blood specimen / Unknown 09/21/2025 11:52 AM EST 09/21/2025 1:37 PM EST us Nellie MONTES LAB BLOOD ORDERABLES Final Resul t Performing Organization Address [facility] Co de Phone Number [facility] [address] [place] [phone] * Influenza B (ID NOW Rapid Molecular) (09/21/2025 11:39 AM EST) [facility] Influenza B Negative Negative, Indeterminate [facility] Swab 09/21/2025 11:3 9 AM EST us Ubaldo Murray MD POINT OF CARE TEST ENTER/EDIT OR DERABLES Final Result Performing Organization Address [facility] de Phone Number [facility] [address] [place] [phone] * POCT Rapid COVID Ag (09/21/2025 11:39 AM EST) Pathologist [facility] Rapid COVID Ag Negative Swab 09/21/2025 11:3 9 AM EST us Ubaldo Murray MD POINT OF CARE TEST ENTER/EDIT OR DERABLES Final Result * Influenza A (ID NOW Rapid Molecular) (09/21/2025 11:38 AM EST) [facility] Influenza A Negative Negative, Indeterminate [facility] Swab 09/21/2025 11:3 8 AM EST Result Ana Murray MD POINT OF CARE TEST ENTER/EDIT OR DERABLES Edited Result - Final Performing Organization Address [facility] Co de Phone Number [facility] [address] [place] [phone] * Chlamydia/N. Gonorrhoeae, PCR, Urine (06/19/2025 10:35 AM EDT) CT PCR, Urine NOT DETECTED Not Detect. [facility] Comment:A not detected test result [...] NG PCR, Urine NOT DETECTED Not Detect. [facility] Comment:A not detected test result [...] 10:35 AM EDT 06/19/2025 3:02 PM EDT Nellie [facility] URINE ORDERABLES Final Resul t [facility] [address] [place] [phone] from Last 3 Months or Most Recently Relevant to Health Maintenance Insurance [facility] C3 Care Teams Cargo And Container Inspector Relationship Specialty Start Date End Date Nellie Feliz ANP [address] [place] [phone] PCP - General Family Medicine 11/14/23
--- NOTE | 2025-10-04 03:43 | ED.GENADULT ---
HPI - General Adult General Chief complaint: Upper Respiratory Symptoms Stated complaint: chest tightness from diff breathing Time Seen by Provider: 10/04/25 03:10 Source: patient Limitations: no limitations History of Present Illness ED Provider: Josselyn Jose PA-C HPI narrative: 20-year-old male presents with cough and cold symptoms x2 days. Cough is dry and repetitive, spasm like with audible wheezing. Associated generalized malaise, headache. No sick contacts with same symptoms, no fevers. No history of asthma, does not smoke Related Data Previous Rx's ?Medication ?Instructions ?Recorded amoxicillin 500 mg capsule 500 mg PO BID 10 days #20 caps 01/17/23 ibuprofen 600 mg tablet 600 mg PO Q8H PRN pain #20 tabs 01/17/23 cyclobenzaprine 5 mg tablet 5 mg PO TID PRN muscle spasm #10 04/29/25 tabs ibuprofen 600 mg tablet 600 mg PO Q8H PRN fever or pain 04/29/25 #20 tabs albuterol sulfate 90 mcg/actuation 2 puff inhalation Q4-6H PRN 10/04/25 aerosol inhaler (Ventolin HFA) shortness of breath or wheezing #8.5 grams benzonatate 200 mg capsule 200 mg PO TID PRN cough #15 caps 10/04/25 prednisone 20 mg tablet 40 mg (2 x 20 mg) PO DAILY #8 tabs 10/04/25 Allergies Allergy/AdvReac Type Severity Reaction Status Date / Time No Known Allergies Allergy Verified 10/04/25 00:56 Review of Systems Review of Systems: Yes all other systems are reviewed and are negative Constitutional: Constitutional: Denies fatigue, Denies fever(s), Reports headache(s) and Reports malaise ENT: Reports headache(s), Denies nasal congestion and Denies sore throat Cardiovascular: Cardiovascular: Denies dyspnea Respiratory: Respiratory: Denies chest congestion, Reports cough, Denies dyspnea and Reports wheezing Gastrointestinal: Gastrointestinal: Denies nausea and Denies vomiting Neurologic: Reports headache(s) Endocrine: Endocrine: Denies fatigue Allergic/Immunologic: Allergic/Immunologic: Reports wheezing PMFSH Past Medical History Attestation statement: The following information was validated with the patient. Social History Social History Substance Use Type: Marijuana Advance Directives: No Advance Directives Information Provided: Yes Physical Exam ED Vital Signs: Vital Signs - 24 hr 10/04/25 00:53 10/04/25 03:03 Temperature 98.1 F 98.6 F Pulse Rate 80 68 Respiratory Rate 18 16 Blood Pressure 129/75 122/74 Pulse Oximetry 94 97 Oxygen Delivery Method Room Air Room Air BMI result Body Mass Index 28.9 Const Other: Alert Orientation/consciousness: patient oriented x3 Resp Other: Nonlabored respirations, expiratory wheezes noted posterior estes, active bronchospasm type cough Cardio Other: Normal peripheral perfusion Skin Other: Warm dry no rash Neuro General: patient oriented x3, gait normal, no focal motor deficits and CN's II-XI intact bilaterally Psych Other: Cooperative Medications Administered Discontinued Medications Generic Name Dose Route Start Last Admin Trade Name Freq PRN Reason Stop Dose Admin Albuterol Sulfate 2 puff 10/04/25 04:03 10/04/25 04:11 Albuterol Sulfate 90 Mcg 8 Gm Inhaler INHALE 10/04/25 04:04 2 puff ONCE ONE Administration Benzonatate 200 mg 10/04/25 03:32 10/04/25 03:53 Benzonatate 100 Mg Capsule PO 10/04/25 03:33 200 mg ONCE ONE Administration Prednisone 40 mg 10/04/25 03:24 10/04/25 03:51 Prednisone 20 Mg Tablet PO 10/04/25 03:25 40 mg ONCE ONE Administration Medical Decision Making Medical Decision Making [facility] Narrative: 20-year-old male presents with cough and cold symptoms x2 days. Cough is dry and repetitive, spasm like with audible wheezing. Associated generalized malaise, headache. No sick contacts with same symptoms, no fevers. No history of asthma, does not smoke. No chronic issues History: Per patient I have considered the following differential diagnoses: Viral syndrome, bronchitis, pneumonia, bronchospasm Plan: Viral panel and chest x-ray ordered from triage, there was no pneumonia, viral panel negative. We will treat the patient's bronchospasm type cough. Labs: Viral panel negative Chest x-ray:COMPARISON: None provided. FINDINGS: Frontal and lateral views of the chest were performed. The cardiac size and mediastinal silhouette are within normal limits. The lungs are clear. There are no acute infiltrates or pleural effusions. There is no pneumothorax. IMPRESSION: 1. No acute disease. Differential Diagnosis Differential Diagnoses: The differential diagnosis associated with the presentation includes See [facility] Admission/Observation Consideration of admission/observation: Escalation of care including admission/observation considered Not applicable Lab Data [facility] Lab Attestation statement: I reviewed the patient's lab results. Labs: Lab Results 10/04/25 Range/Units 01:54 Influenza Type A (PCR) NEGATIVE (Negative) Influenza Type B (PCR) NEGATIVE (Negative) RSV RNA Qual (PCR) NEGATIVE (Negative) SARS-CoV-2 RNA (RT-PCR) NEGATIVE (Negative) Radiology Impression Discussion of test interpretation with radiology: I have reviewed the radiologist's reading. Discharge Plan Discharge Clinical Impression: Viral infection, Acute bronchospasm Patient Disposition: Home, Self-Care Instructions: Viral Syndrome (ED), Bronchospasm (ED) Additional Instructions: You were tested for influenza RSV and COVID, the viral panel was negative. You are being treated for a bronchospasm type cough, secondary to yet another respiratory virus has been circulating within the community. Use the albuterol inhaler as directed, take the steroid as directed. Use the Benzonate as needed for cough. Follow up with your primary care provider as needed. Prescriptions: New prednisone 20 mg tablet 40 mg PO DAILY Qty: 8 0RF benzonatate 200 mg capsule 200 mg PO TID PRN (Reason: cough) Qty: 15 0RF albuterol sulfate [Ventolin HFA] 90 mcg/actuation HFA aerosol inhaler 2 puff inhalation Q4-6H PRN (Reason: shortness of breath or wheezing) Qty: 8.5 0RF No Action cyclobenzaprine 5 mg tablet 5 mg PO TID PRN (Reason: muscle spasm) Qty: 10 0RF Rx Instructions: Do not use this medication before driving or working. ibuprofen 600 mg tablet 600 mg PO Q8H PRN (Reason: fever or pain) Qty: 20 0RF amoxicillin 500 mg capsule 500 mg PO BID 10 Days Qty: 20 0RF ibuprofen 600 mg tablet 600 mg PO Q8H PRN (Reason: pain) Qty: 20 0RF Stand Alone Forms: Work/School Release Print Language: Luxembourgish
[2025-10-04] MEDS: Albuterol Sulfate 90 MCG 8 GM INHALER 2 PUFF INHALE (04:11)
== END 2025-10-04 03:53 | disposition home or self-care (01) ==
PROVIDERS: Emergency Provider Emergency Medicine
DX: B34.9 Viral infection, unspecified (principal); R05.9 Cough, unspecified; R06.2 Wheezing; M79.10 Myalgia, unspecified site; R51.9 Headache, unspecified; Z03.818 Encounter for observation for suspected exposure to other biological agents ruled out; J98.01 Acute bronchospasm; R07.9 Chest pain, unspecified
CPT/HCPCS: 71046; 87637; 93005; 99283; 99284

== ENCOUNTER → 2025-10-04 00:47 | Outpatient (BNV) | payer MEDICAID, SELFPAY | PROVIDERS: Emergency Provider Emergency Medicine; Visit Provider Internal Medicine Cardiovascular Disease | DX: R07.89 Other chest pain (principal) | CPT/HCPCS: 93010 ==

== ENCOUNTER → 2025-10-04 02:04 | Outpatient (BNV) | payer MEDICAID, SELFPAY | PROVIDERS: Emergency Provider Emergency Medicine; Visit Provider Radiology Diagnostic Radiology | DX: R07.89 Other chest pain (principal); R06.2 Wheezing | CPT/HCPCS: 71046 ==